=== PATIENT | female | born 1960 | race African-American/Black ===

== ENCOUNTER 2025-01-09 14:08 | Outpatient (AMB) | payer BC, SELFPAY ==
--- NOTE | 2025-01-09 14:10 | A.OFFPC_ITS ---
Vital Signs 01/09/25 14:13 Height 5 ft 3.5 in Weight 226 lb BMI 39.4 BP 130/68 Blood Pressure Location Lt brachial Position Sitting Respiration 16 Pulse 78 Pulse Source Pulse Oximeter Temp 97.3 F Temp Source Temporal Artery Scan Pulse Oximetry (%) 94 Oxygen Delivery Method Room Air Intake Visit Reasons: Annual exam - see comments Swing Driver Required: No Accompanied by: Self / Same As Patient Allergies cortisone Adverse Reaction (Intermediate, Verified 01/09/25 14:10) vaginal bleeding Penicillins Adverse Reaction (Intermediate, Verified 01/09/25 14:10) Fever and rash Tetracyclines Adverse Reaction (Intermediate, Verified 01/09/25 14:10) Dizziness Medication List - Last Reconciled 01/09/25 by Robina Haas MD albuterol sulfate 90 mcg/actuation 2 puffs inhalation Q4H PRN amlodipine 2.5 mg PO DAILY carvedilol 6.25 mg PO BID inhalational spacing device (OptiChamber Kaitlin VHC spacer) As directed Tobacco use date assessed: 01/09/25 Dental Screening Dental Screen Date: 01/09/25 Did you have a dental visit in the last 12 months?: Yes Did you have a dental problem in the last 6 months where you did not have access to dental care?: No Was dental information given to patient?: Patient has dentist HPI HPI Comments History of Present Illness Details The patient is a 64 year old female presenting to re-establish care and for a physical examination. Paresthesia of Feet: The patient previously experienced tingling in her feet, which she reports improved with magnesium supplementation. She currently has occasional foot pain, which she attributes to compressing the nerve by crossing her legs while sleeping in a propped-up position. The symptoms are not as severe as they were, and she did not see a paving inspector as the issue improved. Colon Cancer Screening: The patient is overdue for a colonoscopy, with her last one being almost 11 years ago. A previous attempt to schedule at [facility] was unsuccessful and patient forgot to follow up. Breast Health Management: The patient has a history of bloody discharge from her left breast, which also occurred once after her hysterectomy. An evaluation with a breast specialist at [facility] included a diagnostic MRI, ultrasound, and a regular mammogram, all of which were negative for any findings. She will follow up with them re screening due date. Alopecia: The patient was diagnosed with alopecia approximately 25 years ago. She has not seen her engineering leader, Dr. Cm, in about 12 years but is interested in revisiting treatment options after hearing about a new medication. Suspected Urinary Tract Infection: The patient began experiencing symptoms suggestive of a urinary tract infection on Thursday, which briefly resolved before recurring with severe pain last night. This morning, she reports no burning and denies any changes in urine color or foaming. Recent COVID-19 Infection: The patient had a non-severe case of COVID-19 during the week of , which she managed with home care. Since the infection, she reports using her inhaler off and on. Prediabetes-due for repeat a1c Social History: - Exercise: Patient's exercise is limite d to occasional walks; a 25-minute walk is the longest she typically does. She sometimes experiences aches in her knees and hips. - Diet: She has been cutting back on swe ets. She drinks apple juice but velazquez it down to reduce sugar concentration. - Hydration: Makes a conscious effort to increase water intake and drinks about one and a half large bottles daily, but still feels dehydrated at times. Diagnostic Results: - Prior Breast Imaging: A diagnostic MRI , ultrasound, and mammogram were all n egative for abnormalities. - Prior Labs: Vitamin B12 level was in t he low-normal range. Review of Systems - Constitutional: Reports mood is good. Denies significant anxiety. - Breast: Reports a history of bloody di scharge from the left breast. - Respiratory: Reports intermittent use of an inhaler since a recent COVID-19 infection. - Genitourinary: Reports symptoms of a u rinary tract infection (burning) that were severe last night but have since resolved. Denies any change in urine color or foaming. Denies vaginal bleeding. - Musculoskeletal: Reports occasional ac hes and pains in her knees and hips. - Integumentary: Reports a history of al opecia. - Neurological: Reports occasional foot pain but notes it is less severe than the previous tingling. Physical Exam - Gen: NAD - Neck: Carotid arteries show normal blo od flow. No lymph node enlargement noted. - Ears: Clear. - Oropharynx: Normal, no redness. - Lungs: Clear to auscultation bilateral ly, no wheezing heard. - Cardiovascular: Normal rhythm. A soft murmur is present. - Abdomen: Soft, non-tender, non distend ed. Normal bowel sounds. - Extremities: Mild edema present in bot h ankles. Assessment and Plan 1. Health Maintenance - The patient is a 64-year-old female pr esenting to re-establish care. - She is overdue for a colonoscopy by ap proximately 11 years. - Plan is to place a referral for a colo noscopy. - The patient will be advised to contact her breast specialist to schedule her annual mammogram. - She will also contact her dermatologis t regarding her alopecia. - Lab orders will be placed for fasting lipids, A1c, CMP, thyroid panel, iron panel, and urinalysis. - Follow up in 6 months or sooner if nee ded 2. Suspected Urinary Tract Infection - The patient reports intermittent sympt oms of dysuria which were severe last night but have resolved today. - A urinalysis will be performed with he r lab work to assess for infection, and treatment will be initiated if positive. 3. Paresthesia of the feet - The patient reports a history of foot tingling, which is now less severe and manifests as occasional pain, possibly positional. - Her prior vitamin B12 level was low-no rmal. - She is advised to begin ziyx-smp-jprok er vitamin B12 1000 mcg daily. 4. Vitamin D Supplementation - Plan is to start vitamin D 2262-3641 I U daily for general health. 5. Bilateral lower extremity edema - The physical exam revealed mild swelli ng in both ankles. - Previously provided advice to wear com pression stockings was reiterated. 6. Lifestyle counseling - The patient was counseled on increasin g physical activity to a total of 2.5-3 hours per week and maintaining adequate hydration by drinking at least 48 ounces of water daily. - She was also advised to continue dilut ing sugary beverages. 7. Prediabetes- repeat a1c Follow up in 6 months Discussion Notes I advised the patient on the importance of her preventative health screenings. I have placed a new referral for a colonoscopy. I instructed her to contact the breast specialist's office to schedule her next mammogram and to follow up with her engineering leader for her alopecia, for which I will provide a referral if needed. We discussed her recent symptoms of a possible UTI, and I have ordered a urinalysis to check for infection. I also ordered comprehensive fasting labs, including a lipid panel, A1c, CMP, and thyroid and iron panels. I recommended she begin taking inuw-swi-kfjabyj vitamin D 2894-5707 IU and vitamin B12 1000 mcg daily, as her prior B12 was low-normal. We also reviewed lifestyle goals, including incorporating 2.5-3 hours of exercise weekly, maintaining adequate hydration, and wearing compression stockings for her ankle swelling. Patient Instructions - Go to the lab for fasting blood work a nd a urine test. - A referral has been sent for you to cesar ve a colonoscopy. The specialist's office will call you to schedule it. - Call the breast specialist at [facility] to see when you are due for your next mammogram. - Call your engineering leader to make an jennie ointment to discuss your hair loss. Let our office know if they need a new referral. - Start taking Vitamin D, 1000 or 2000 u nits, every day. - Start taking Vitamin B12, 1000 mcg, ev liz day. - Try to exercise for a total of 2.5 to 3 hours each week. This can be broken into shorter sessions of 30-45 minutes. - Drink plenty of water, aiming for abou t 48 oz minimum per day - Wear compression stockings to help wit h the swelling in your ankles. - Check the expiration date on your inha ler. [facility] Medical History (Updated 01/09/25 @ 17:48 by Robina Haas MD) Routine adult health maintenance Alopecia Urinary symptom or sign Impaired fasting glucose Iron deficiency anemia Primary hypertension Unspecified asthma Surgical History (Updated 01/09/25 @ 12:23 by Robina Haas MD) History of hysteroscopy H/O: hysterectomy Family History (Updated 01/09/25 @ 12:21 by Robina Haas MD) Mother Primary hypertension Father Diabetes mellitus Hepatitis Stroke Sister Diabetes mellitus Brother Primary hypertension Social History Housing: House Patient Tobacco Use Status: Never used Tobacco e-Cigarette/Vaping Use: Never Used service: No Current occupational status: employed Current occupation: food trades assistants Questionnaire PHQ-9 Over the last 2 weeks, how often have you been bothered by any of the following problems? 1. Little interest or pleasure in doing things: not at all 2. Feeling down, depressed, or hopeless: not at all 3. Trouble falling or staying asleep, or sleeping too much: not at all 4. Feeling tired or having little energy: not at all 5. Poor appetite or overeating: several days 6. Feeling bad about yourself - or that you are a failure or have let yourself or your family down: not at all 7. Trouble concentrating on things, such as reading the newspaper or watching television: not at all 8. Moving or speaking so slowly that other people could have noticed. Or the opposite - being so fidgety or restless that you have been moving around a lot more than usual: not at all 9. Thoughts that you would be better off or of hurting yourself in some way: not at all Total score: 1 Depression Screening Interpretation: Negative Depression Screening Done: Yes 73101 - PHQ-9 Billing: Yes Source: Developed by Drs. Jonah Regan, Keely Us, Craig Barnes and colleagues, with an educational kalee from [employer]. Thrive Questionnaire Date Thrive assessed: 01/09/25 I am a: Patient What is your living situation today?: I have a steady place to live Within the past 12 months, did the food you bought not last and you didn't have the money to get more?: Never true Within the past 12 months, did you worry whether your food would run out before you got money to buy more?: Never true Do you have trouble paying for medicines?: No Do you have trouble getting transportation to medical appointments?: No Do you have trouble paying your heating and electricity bill?: No Do you have trouble taking care of your child, family member or friend?: No Do you have trouble with day-to-day activities such as bathing, preparing meals, shopping, managing finances, etc.?: No Are you currently unemployed and looking for a job?: No Are you interested in more education?: No Please select the resources that you would like help with: None THRIVE Score: 0 AUDIT C Alcohol Use Questionnaire (AUDIT-C) 1. How often do you have a drink containing alcohol?: Monthly or less 2. How many drinks containing alcohol do you have on a typical day when you are drinking?: 1 or 2 3. How often do you have six or more drinks on one occasion?: Never Total Score: 1 AMBERLY-7 AMB Questionnaire AMBERLY-7 Date AMBERLY - 7 assessed: 01/09/25 Feeling nervous, anxious, or on edge: 0 = Not at all Not being able to stop or control worryin = Not at all Worrying too much about different things: 1 = Several days Trouble relaxin = Not at all Being so restless that it is hard to sit still: 0 = Not at all Becoming easily annoyed or irritable: 0 = Not at all Feeling afraid as if something awful might happen: 0 = Not at all Total AMBERLY-7 score (0-4 normal; 5-9 mild; 10-14 moderate; 15-21 severe): 1 Source: Developed by Drs. Jonah Regan, Keely Us, Craig Barnes and colleagues, with an educational kalee from [employer]. Physical exam (Primary Care) Vital Signs: Last Vital Signs Temp 97.3 F 01/09/25 14:13 Pulse 78 01/09/25 14:13 Resp 16 01/09/25 14:13 BP 130/68 01/09/25 14:13 Pulse Ox 94 01/09/25 14:13 Oxygen Delivery Method Room Air 01/09/25 14:13 BMI result Body Mass Index 39.4 Tobacco/Smoking Status: Tobacco use Status Tobacco use date assessed 01/09/25 01/09/25 14:12 Patient Tobacco Use Status Never used Tobacco 01/09/25 14:18 e-Cigarette/Vaping Use Never Used 01/09/25 14:18 PHQ-9: PHQ-9 Score PHQ-9: Total score 1 01/09/25 16:16 Depression Screening Interpretation: Negative Thrive Assessment: Date of Thrive Assessment Date Thrive assessed 01/09/25 01/09/25 16:16 Coding Level of Care Code Est Pt Prev Care 40-64y(38524) Diagnoses Impaired fasting glucose R73.01 Primary hypertension I10 Urinary symptom or sign R39.9 Alopecia L65.9 Routine adult health maintenance Z00.00 Additional Codes PHQ-9 - 60855 - PHQ-9 Billing: Yes ([id number]) Assessment & Plan Assessment & Plan (1) Impaired fasting glucose: Code(s): R73.01 - Impaired fasting glucose Category: Medical (2) Primary hypertension: Code(s): I10 - Essential (primary) hypertension Category: Medical (3) Urinary symptom or sign: Code(s): R39.9 - Unspecified symptoms and signs involving the genitourinary system Category: Medical (4) Alopecia: Code(s): L65.9 - Nonscarring hair loss, unspecified Category: Medical (5) Routine adult health maintenance: Code(s): Z00.00 - Encounter for general adult medical examination without abnormal findings Category: Medical Plan - A referral will be placed for a colonoscopy. - The patient will contact her breast specialist's office at [facility] to determine when her next mammogram is due. - The patient will contact her engineering leader to schedule a follow-up for alopecia; a referral will be sent if required. - Fasting labs have been ordered, including a lipid panel, A1c, comprehensive metabolic panel, thyroid panel, and iron level. - A urinalysis has been ordered to investigate for a urinary tract infection. - Recommended starting vitamin D 3187-3906 IU daily. - Counseled on increasing exercise to 2.5-3 hours per week. - Counseled on maintaining adequate water intake and diluting sugary drinks. - Re-advised the use of compression stockings for bilateral ankle swelling. Orders: Orders Lipid Panel Today I10 - Essential (primary) hypertension, R73.01 - Impaired fasting glucose Comprehensive Met. Panel Today I10 - Essential (primary) hypertension, R73.01 - Impaired fasting glucose Hemoglobin A1c Today I10 - Essential (primary) hypertension, R73.01 - Impaired fasting glucose Ferritin Today I10 - Essential (primary) hypertension, L65.9 - Nonscarring hair loss, unspecified, R73.01 - Impaired fasting glucose IRON PROFILE Today I10 - Essential (primary) hypertension, L65.9 - Nonscarring hair loss, unspecified, R73.01 - Impaired fasting glucose Microalbumin, Random (w Creat) Today I10 - Essential (primary) hypertension, R73.01 - Impaired fasting glucose UA and rflx microscopic Today R39.9 - Unspecified symptoms and signs involving the genitourinary system Urine Culture Today R39.9 - Unspecified symptoms and signs involving the genitourinary system TSH reflex Free T4 Today L65.9 - Nonscarring hair loss, unspecified Vitamin D 25-OH Total Today I10 - Essential (primary) hypertension, L65.9 - Nonscarring hair loss, unspecified, R73.01 - Impaired fasting glucose Referrals Dermatology Referral L65.9 - Nonscarring hair loss, unspecified Gastroenterology Referral Z12.11 - Encounter for screening for malignant neoplasm of colon Medications: New cyanocobalamin (vitamin B-12) 1,000 mcg PO DAILY 90 caps 3RF Patient Instructions: GET FASTING LABS AND URINE CALL DERMATOLOGYSHELBY RE MAMMOGRAM TAKE VITAMIN D 1000 IU DAILY TAKE VITAMIN B12 1000MCG DAILY
[2025-01-09 14:13] VITALS: BP 130/68; PULSE 78; RESP 16; TEMP 36.3; O2SAT 94; BMI 39.4
--- OUTSIDE RECORDS SUMMARY | 2025-01-09 16:29 | XMS_ITS | Clinical Summary ---
Author Organization [employer] Address [address] [place] [address] Care Team Providers Care Head Of Geography Name Role Phone Robina Haas MD Primary Care Provider [phone]- [phone] Allergies Active Allergy Reactions Criticality Noted Date Comments Cortisone Other 06/03/2017 Other Reaction(s): vaginal bleeding Penicillins Rash 09/21/2019 Tetracyclines Nausea And Vomiting 06/04/2005 Other Reaction(s): Rash/Dermatitis Medications ergocalciferol, vitamin D2, (VITAMIN D2 ORAL) Take by mouth. Activ e cholecalciferol (VITAMIN D-3) 50 mcg (2,000 unit) capsule Take 1 capsule (2,000 Units total) by mouth 1 (one) time each day. 4 Active carvediloL (COREG) 6.25 mg tablet Take 1 tablet (6.25 mg total) by mouth 2 (two) times a day. for 30 days Active ibuprofen (ADVIL,MOTRIN) 600 mg tablet TAKE 1 TABLET BY MOUTH EVERY 6 HOURS MAX 2400 MG/DAY 4 Active albuterol HFA (PROAIR HFA ; PROVENTIL HFA ; VENTOLIN HFA) 90 mcg/actuation inhaler USE 2 PUFFS INHALATION 4 TIMES A DAY NEEDED FOR WHEEZING Active amLODIPine (NORVASC) 2.5 mg tablet Take 1 tablet (2.5 mg total) by mouth 1 (one) time each day. 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 Inflammation of hair follicles 02/09/2012 D X:Inflammation of hair follicles Other specified personal his tory presenting hazards to health(V15.89) 08/02/10 DX:Other specifie d personal history presenting hazards to health(V15.89); COMMENT: JOHN Essential hypertension DX:Essent ial hypertension Family History Medical History Relation Name Comments Hypertension Brother Diabetes Father Hypertension Mother Hypertension Sister Blindness Neg Hx Breast cancer Neg Hx Cataracts Neg Hx Colon cancer Neg Hx Glaucoma Neg Hx Macular degeneration Neg Hx Ovarian cancer Neg Hx Strabismus Neg Hx Uterine cancer Neg Hx Relation Name Status Comments Brother Alive 1 Father Mother Alive Sister Alive 3 Social History Tobacco Use Types Packs/Day Years Used Date Smoking Tobacco: Never Smokeless Tobacco: Never Alcohol Use Standard Drinks/Week Comments Yes 0 (1 standard drink = 0.6 oz pur e alcohol) Comments No Sex and Gender Information Value Date Recorded Sex Assigned at Not on file Legal Sex Female 3:59 PM EST Gender Identity Not on file Sexual Orientation Not on file Obstetrics History * This document contains information received from the source organization and may not represent a complete record from that organization. Para Term AB IAB SAB Ectopic Multiple Livin g Live Births 3 2 1 1 1 1 Date Outcome GA Total Labor Labor/2nd/3rd Weight Sex Type Anes PTL Hermila A1 A5 Name Clin Term 994 36w 0d M Vag-S pont None Living Delivery Location:[facility] [place] Last Filed Vital Signs Vital Sign Reading Time Taken Comments Blood Pressure 158/76 05/16/2024 1:10 PM EDT Pulse 67 05/16/2024 1:10 PM EDT Temperature - - Respiratory Rate - - Oxygen Saturation - - Inhaled Oxygen Concentration - - Weight 101 kg (223 lb) 05/16/2024 1:10 PM EDT Height 160 cm (5' 3 ) 05/16/2024 1:10 PM EDT Body Mass Index 39.5 05/16/2024 1:10 PM EDT Plan of Treatment Health Maintenance Due Date Last Done Comments Colorectal Cancer Screening: Colonoscopy 1962 RSV Immunization Adult Patients (1 - Risk 50-74 years 1-dose series) 2012 Zoster Vaccines (1 of 2) 2012 Pneumococcal Vaccine: 50+ Years (2 of 2 - PCV) 08/15/2016 08/16/2015 Cholesterol Screening (Lipid Panel) 02/08/2022 HIV Screening 02/08/2022 Hepatitis C Screening 02/08/2022 Social Influencers of Health Screening 02/08/2022 DTaP,Tdap,and Td Vaccines (3 - Td or Tdap) 11/16/2022 11/16/2012, 02/28/2004 Cervical Cancer Screening: Pap Smear 02/26/2023 02/27/2020 Depression Screening 03/02/2024 Hypertension/CHF/CAD Annual BMP Blood Test 05/16/2024 COVID-19 Vaccine ( season) 2024 02/03/2023, 11/16/2021, 01/17/2021, Additional history exists Influenza Vaccine (#1) 2024 , 01/20/2022, 01/11/2021, Additional history exists Breast Cancer Screening 05/25/2026 05/26/19 25, 08/06/2023, 11/17/2022, Additional history exists HIB Vaccines Aged Out No longer eligi ble based on patient's age to complete this topic HPV Vaccines Aged Out No longer eligi ble based on patient's age to complete this topic Hepatitis A Vaccines Aged Out No long er eligible based on patient's age to complete this topic Hepatitis B Vaccines Aged Out No long er eligible based on patient's age to complete this topic IPV Vaccines Aged Out No longer eligi ble based on patient's age to complete this topic MMR Vaccines Aged Out No longer eligi ble based on patient's age to complete this topic Meningococcal ACWY Vaccine Aged Out N o longer eligible based on patient's age to complete this topic Meningococcal B Vaccine Aged Out No l onger eligible based on patient's age to complete this topic RSV Immunization Patients Under 20 months Aged Out No longer eligible based on patient's age to complete this topic Varicella Vaccines Aged Out No longer eligible based on patient's age to complete this topic Procedures Procedure Name Priority Date/Time Associated Diagnosis Comments MG MAMMO DIGITAL DIAGNOSTIC W RAMSES BILAT Routine 05/25/2024 3:14 PM EDT Nipple discharge Mass of lower inner quadrant of right breast PAP SMEAR Routine 02/27/2020 from Last 3 Months or Most Recently Relevant to Health Maintenance Results * MG Mammo Digital Diagnostic w Ramses bilat (05/25/2024 3:14 PM EDT) Anatomical Region Laterality Modality Breast Bilateral Mammography 05/25/2024 3:15 PM EDT Impressions 05/25/2024 3:28 PM EDT Benign. However, since the patient describes clear as well as pink right nipple discharge, breast MRI is suggested. The patient was advised that her provider would need to put in the order for the breast MRI. Findings and recommendations were conveyed to the patient in person. BI-RADS CATEGORY: 2 - BENIGN RECOMMENDATION: Breast MRI is recommended. Return to annual mammography. Return to annual mammography. Breast MRI is recommended. Mammo Location: [facility], [address] [place] [address], [id number], . -------- FINAL REPORT -------- Dictated By: Mellisa Singh Dictated Date: 05/25/2024 15:15 ET Assigned Physician: Mellisa Singh Reviewed and Electronically Signed By: Mellisa Singh Signed Date: 05/25/2024 15:28 ET Workstation ID: [id number] Transcribed By: Self Edit Transcribed Date: 05/25/2024 15:21 ET Narrative 05/25/2024 3:28 PM EDT CLINICAL: 63 years old, Female, bloody nipple discharge right breast. Patient had bilateral diagnostic mammogram and right breast ultrasound on 08/06/2023 at [facility] for the same issue. A single dilated duct posterior to the right nipple was identified. COMPARISON: Mammograms dating back to 08/28/2020 with most recent of 11/17/2022. FINDINGS: MAMMOGRAPHY TECHNIQUE: Bilateral MLO and CC views were obtained digitally with 3-D mammogram (digital breast tomosynthesis). Computer-aided detection was utilized in evaluation of this exam (CAD). There is no evidence of suspicious mass or architectural distortion. No worrisome calcifications are evident. There has been no significant change from prior exam(s). BREAST DENSITY: B - There are scattered areas of fibroglandular density. ULTRASOUND TECHNIQUE: Ultrasound evaluation of the retroareolar right breast was performed. Portions of all 4 quadrants were examined. There is no evidence of morphologically suspicious mass. There is no cyst or solid mass. There is a single prominent duct right nipple. Daphne Ying CNM IMG BI PROCEDURES Final Result * Pap smear (02/27/2020) 02/27/2020 Narrative HISTORICAL TESTING LAB RESULTING AGENCY - 02/29/2020 12:20 PM EST [id number] THINPREP PAP, IMAGED: NEGATIVE FOR SQUAMOUS INTRAEPITHELIAL LESION AND MALIGNANCY . MARYCARMEN RAMIREZ , MORGAN(ASCP) (CASE ELECTRONICALLY SIGNED 02 29 2020) RESULT OF APTIMA HIGH RISK HPV ASSAY: HIGH RISK HPV: NEGATIVE (SEROTYPES 16,18,31,33,35,39,45,51,52,56,58,59,66,68) COMPLETED ON 2020-02-29 ADEQUACY: SATISFACTORY ENDOCERVICAL/TRANSFORMATION ZONE COMPONENT PRESENT. SOURCE: THINPREP PAP HPV ANY DX: REFLEX 16 AND 18, CERVICAL, IMAGED CLINICAL INFORMATION: HPV ANY DIAGNOSIS. HORMONES, PAP HX NEG, PERIMENOPAUSE [Z12.4] Leeanne Valles DO LAB CYTOLOGY ORDERABLES Final Result HISTORICAL TESTING LAB RESULTING AGENCY from Last 3 Months or Most Recently Relevant to Health Maintenance Insurance [facility] Care Teams Head Of Geography Relationship Specialty Start Date End Date Robina Haas MD [address] [place] [address] PCP - General Internal Medicine 09/19/15
== END 2025-01-09 15:13 | disposition home or self-care (01) ==
LOC: HO.HMCHD 14:09
PROVIDERS: Family Provider Internal Medicine; PCP Internal Medicine; Visit Provider Internal Medicine
DX: Z00.00 Encounter for general adult medical examination without abnormal findings (principal); R73.01 Impaired fasting glucose; I10 Essential (primary) hypertension; R39.9 Unspecified symptoms and signs involving the genitourinary system; L65.9 Nonscarring hair loss, unspecified

== ENCOUNTER → 2025-01-09 14:08 | Outpatient (BNVA) | payer BC, SELFPAY | PROVIDERS: Family Provider Internal Medicine; PCP Internal Medicine; Visit Provider Internal Medicine | DX: Z00.00 Encounter for general adult medical examination without abnormal findings (principal); Z13.31 Encounter for screening for depression; R73.01 Impaired fasting glucose; I10 Essential (primary) hypertension; R39.9 Unspecified symptoms and signs involving the genitourinary system; L65.9 Nonscarring hair loss, unspecified | CPT/HCPCS: 96127 ==

== ENCOUNTER 2025-01-10 10:21 | Outpatient (REF) | payer BC, SELFPAY ==
--- OUTSIDE RECORDS SUMMARY | 2025-01-10 11:57 | XMS_ITS | Clinical Summary ---
Author Organization [employer] Address [address] [place] [address] Care Team Providers Care Culinary Worker Name Role Phone Robina Haas MD Primary Care Provider +1- [phone] Allergies Active Allergy Reactions Criticality Noted Date [...] COMMENT: replacements OTHER SURGICAL HISTORY 08/2019 PROCEDURE: HI DILATION & CURETTAGE DX&/THER NONOBSTETRIC; COMMENT: polypectomy, [...] 0d M Vag-S pont None Living [place] [place] Last Filed Vital Signs Vital Sign Reading [...] mammography. Breast MRI is recommended. Mammo Location: [facility], [address] [place] [address], [address], . -------- FINAL REPORT -------- Dictated By: Mellisa Singh Dictated Date: 05/25/2024 15:15 ET Assigned Physician: Mellisa Singh Reviewed and Electronically Signed By: Mellisa Singh Signed Date: 05/25/2024 15:28 ET Workstation ID: [id number] Transcribed By: Self Edit Transcribed Date: 05/25/2024 15:21 ET Narrative 05/25/2024 3:28 PM EDT CLINICAL: 63 years old, Female, bloody nipple discharge right breast. Patient had bilateral diagnostic mammogram and right breast ultrasound on 08/06/2023 at [facility] for the same issue. A single dilated [...] RESULTING AGENCY - 02/29/2020 12:20 PM EST [id number] THINPREP PAP, IMAGED: NEGATIVE FOR SQUAMOUS INTRAEPITHELIAL [...] Most Recently Relevant to Health Maintenance Insurance [facility] Care Teams Culinary Worker Relationship Specialty Start Date End Date Robina Haas MD [address] [place] [address] PCP - General Internal Medicine 09/19/15
[2025-01-10 13:45] LABS: Alanine Aminotransferase 15 U/L (0-31); Albumin Level 3.9 g/dL (3.5-5.0); Alkaline Phosphatase 105 U/L (39-117); Anion Gap 9 (12-20); Aspartate Amino Transferase 24 U/L (5-31); Blood Urea Nitrogen 11 mg/dL (9-16); Calcium 9.2 mg/dL (8.4-10.2); Carbon Dioxide 28 mmol/L (22-29); Chloride 107 mmol/L (96-108); Cholesterol 166 mg/dL (<200); Estimated Glomerular Filt Rate > 60; HDL Cholesterol 35 mg/dL (>40); Iron 39 mcg/dL (30-160); Percent Iron Saturation 13 % (15-50); Potassium 4.1 mmol/L (3.3-5.1); Sodium 140 mmol/L (135-145); Total Iron Binding Capacity 296 mcg/dL (228-428); Total Protein 7.3 g/dL (6.5-8.0); Triglycerides 59 mg/dL (<150); Unsaturated Iron Binding 257 ug/dL
[2025-01-10 13:46] LABS: Appearance Urine Clear; Glucose Urine UA Negative (Negative); PH 6.0 (5.0-9.0); Specific Gravity - Urine 1.010 (1.005-1.025)
[2025-01-10 13:54] LABS: Ferritin 35 ng/mL (10-250)
== END 2025-01-10 10:22 | disposition home or self-care (01) ==
LOC: HO.HKASLDS 10:21
PROVIDERS: PCP Internal Medicine; Visit Provider Internal Medicine
DX: R73.01 Impaired fasting glucose (principal); I10 Essential (primary) hypertension; L65.9 Nonscarring hair loss, unspecified; R39.9 Unspecified symptoms and signs involving the genitourinary system
CPT/HCPCS: 36415; 80053; 80061; 81003; 82043; 82306; 82570; 82728; 83036; 83540; 84443; 87086